=== PATIENT | female | born 1940 | race Caucasian/White ===

== ENCOUNTER 2018-11-29 09:52 | Outpatient (CLI) | payer MEDICARE, OTHER ==
[~2018-11-29] VITALS: Ht 154.9 cm; Wt 52.2 kg
[~2018-11-29 09:52] MED LIST: ATOR20TA PO; ESCI20TA PO; LOPE-155 PO; LOSA50TA3 PO
[2018-11-29 11:25] LABS: TOTAL HEMOGLOBIN 14.1 G/dl (12.0-16.0)
[2018-11-29] MEDS ORDERED: albuterol 2.5 MG/3 ML nebule NEB PRN (11:25)
== END 2018-11-29 23:59 | disposition home or self-care (01) ==
LOC: RT 09:52
PROVIDERS: ATTEND Internal Medicine Cardiovascular Disease
DX: J84.10 Pulmonary fibrosis, unspecified (principal); Z09 Encounter for follow-up examination after completed treatment for conditions other than malignant neoplasm; Z87.09 Personal history of other diseases of the respiratory system
CPT/HCPCS: 85018; 94010; 94727; 94729

== ENCOUNTER 2019-12-07 08:05 | Day surgery (SDC) | payer MEDICARE, OTHER ==
[~2019-12-07] VITALS: Ht 177.8 cm; Wt 55.3 kg
[~2019-12-07 08:05] MED LIST changes: -LOPE-155 PO; +LOPE-190 PO
[2019-12-07] MEDS ORDERED: normal saline 1000ml 1,000 ML IV PRN (08:20)
[2019-12-07] MEDS ORDERED: albumin 25% 100mL bottle x 1 IV PRN (08:20)
[2019-12-07] MEDS ORDERED: OMEP20TA23 PO (08:34)
[2019-12-07] MEDS ORDERED: ESCI10TA PO (08:34)
[2019-12-07] MEDS ORDERED: PSYL575P22 (08:34)
[2019-12-07] MEDS ORDERED: ERGO400C PO (08:34)
[2019-12-07 08:43] VITALS: BP 124/76
[2019-12-07 09:20] VITALS: BP 119/68
[2019-12-07 09:30] VITALS: BP 141/83
[2019-12-07 09:50] VITALS: BP 149/81
[2019-12-07 10:05] VITALS: BP 140/74
[2019-12-07 10:20] VITALS: BP 137/75
== END 2019-12-07 10:20 | disposition home or self-care (01) ==
LOC: SSTAY O 08:05
PROVIDERS: ATTEND Radiology Diagnostic Radiology
DX: R18.8 Other ascites (principal)
CPT/HCPCS: 49083; C1729; J7030

== ENCOUNTER 2021-03-12 06:24 | Day surgery (SDC) | payer MEDICARE, OTHER ==
[~2021-03-12] VITALS: Ht 152.4 cm; Wt 47.6 kg
[~2021-03-12 06:24] MED LIST changes: -ATOR20TA PO; +ERGO400C PO; +ESCI10TA PO; -ESCI20TA PO; -LOPE-190 PO; -LOSA50TA3 PO; +OMEP20TA23 PO; +PSYL575P22
[2021-03-12] MEDS ORDERED: albumin 25% 100mL bottle x 1 IV PRN (06:45)
[2021-03-12] MEDS ORDERED: METO5TAB85 PO (07:13)
[2021-03-12] MEDS ORDERED: ANAS1TAB10 PO (07:13)
[2021-03-12] MEDS ORDERED: LORA-269 PO (07:13)
[2021-03-12] MEDS ORDERED: TRAZ-251 PO (07:13)
[2021-03-12 07:19] VITALS: BP 143/75
--- NOTE | 2021-03-12 08:19 | NUR ---
procedure cancelled, ultrasound only. sandra called for a ride.
== END 2021-03-12 12:10 | disposition home or self-care (01) ==
LOC: SSTAY O 06:24
PROVIDERS: ATTEND Radiology Vascular & Interventional Radiology
DX: R18.8 Other ascites (principal); Z53.8 Procedure and treatment not carried out for other reasons; R14.0 Abdominal distension (gaseous); Z85.3 Personal history of malignant neoplasm of breast; Z72.89 Other problems related to lifestyle; Z79.899 Other long term (current) drug therapy; Z82.3 Family history of stroke; Z80.0 Family history of malignant neoplasm of digestive organs
CPT/HCPCS: 76705